=== PATIENT | female | born 1970 | race American Indian/Alaskan Native ===

== ENCOUNTER 2018-07-25 08:08 | Outpatient (CLI) | payer OTHER ==
[2018-07-25] MEDS ORDERED: NACL 0.9% 50 ML ONE (08:37)
--- NOTE | 2018-07-25 11:57 | Cat Scan Report ---
CT CHEST WITH CONTRAST: HISTORY: Solitary pulmonary nodule. COMPARISON: None at this facility. TECHNIQUE: Helical CT in 1.25mm intervals following IV contrast. Sagittal and coronal reformatted images. FINDINGS: Thyroid gland: Normal. Tracheobronchial tree: Normal. Esophagus: Normal. Heart: Normal. Pericardium: Normal. Mediastinum: Normal. Lung Bowers: There is minor discoid atelectasis in the right lower lobe and right upper lobe. The lungs are well aerated otherwise. No airspace or interstitial lung disease is identified. A well marginated 1.2 cm subpleural nodule is noted in the lateral right middle lobe. Overall this has benign characteristics. No additional pulmonary nodule is identified. Pleural Spaces: Normal. Musculoskeletal: Normal. IMPRESSION: 1.2 cm right middle lobe nodule as outlined above. Consider followup in 6 months to ensure stability.
== END 2018-07-25 08:09 | disposition home or self-care (01) ==
LOC: CT 08:08
PROVIDERS: ATTEND Internal Medicine
DX: N64.4 Mastodynia (principal); R91.1 Solitary pulmonary nodule
CPT/HCPCS: 71270; Q9967